=== PATIENT | male | born 1950 | race Caucasian/White ===

== ENCOUNTER 2017-01-04 09:04 | Emergency (ER) | payer MEDICARE ==
[2017-01-04] MEDS ORDERED: ALEV220T14 PO (09:35)
[2017-01-04] MEDS ORDERED: cloNIDine HCL 0.1 MG TAB PO ONE (09:45)
--- NOTE | 2017-01-04 09:45 | PD ---
HPI Chief Complaint: Back/ Neck Pain or Injury Time Seen by Provider: 09:32 Travel History International Travel<30 days: No Contact w/Intl Traveler<30days: No Traveled to known affect area: No History of Present Illness HPI 66 years old male complains of left sided neck pain and left low back pain. Patient states that the pain started about 2 weeks ago. Patient states the pain is persistent pain localized to left sided neck and also left low back area. Patient denies any pain radiation. Patient denies any fever chills. Patient denies any headache. Patient denies any coughing congestion. Patient denies abdominal pain. Patient denies any focal weakness or numbness of extremity. Patient denies recent injury. Patient denies any dysuria or frequency. Patient denies any history kidney stone. Patient states that he has history of high blood pressure in the past however not on any medication. PFSH Past Medical History Medical History: Denies Significant Hx Diminished Hearing: Yes Influenza Vaccination: No ?: Not Past Surgical History Appendectomy: Yes Other Surgery: Yes (NOSE) Social History Alcohol Use: Yes Tobacco Use: No Allergies-Medications (Allergen,Severity, Reaction): Coded Allergies: No Known Allergies (Unverified , 01/04/17) Reported Meds & Prescriptions Reported Meds & Active Scripts Active Ultram (Tramadol HCl) 50 Mg Tab 50 Mg PO Q6H PRN Lisinopril 10 Mg Tab 10 Mg PO DAILY Reported Aleve Arthritis (Naproxen Sodium) 220 Mg Tab 220 Mg PO BID Review of Systems General / Constitutional: No: Fever Eyes: No: Visual changes HENT: No: Headaches Cardiovascular: No: Chest Pain or Discomfort Respiratory: No: Shortness of Breath Gastrointestinal: No: Abdominal Pain Genitourinary: No: Dysuria Musculoskeletal: No: Pain Skin: No Rash Neurologic: No: Weakness Psychiatric: No: Depression Endocrine: No: Polydipsia Hematologic/Lymphatic: No: Easy Bruising Physical Exam Narrative GENERAL: Well-nourished, well-developed patient. SKIN: Focused skin assessment warm/dry. HEAD: Normocephalic. EYES: No scleral icterus. No injection or drainage. NECK: Supple, trachea midline. No JVD or lymphadenopathy. Mild tenderness on palpation soft tissue area left paraspinal areas cervical spine. No midline tenderness. CARDIOVASCULAR: Regular rate and rhythm without murmurs, gallops, or rubs. RESPIRATORY: Breath sounds equal bilaterally. No accessory muscle use. GASTROINTESTINAL: Abdomen soft, non-tender, nondistended. MUSCULOSKELETAL: No cyanosis, or edema. BACK: Moderate tenderness to palpation left lower lumbar area without obvious deformity. No CVA tenderness. Negative straight leg raising. Neurologic exam normal. Data Data Last Documented VS Vital Signs Date Time Temp Pulse Resp B/P (MAP) Pulse Ox O2 Delivery O2 Flow Rate FiO2 01/04/17 10:48 177/94 (121) Orders Orders Clonidine (Catapres) (01/04/17 09:45) Spine, Cervical - Ltd (Ap&Lat) (01/04/17 09:40) Ct Abd/Pel W/O Iv Contrast (01/04/17 09:40) Ct Lumb Spine W/O Contrast (01/04/17 09:40) MDM Medical Decision Making Medical Screen Exam Complete: Yes Emergency Medical Condition: Yes Interpretation(s) Last Impressions Cervical Spine X-Ray 01/04/17939 Signed Impressions: Service Date/Time: December 09:50 - CONCLUSION: No acute cervical spine abnormality is identified. There is degenerative disc disease at C6-C7. Kamron Corbett MD Abdomen/Pelvis CT 01/04/17939 Signed Impressions: Service Date/Time: December 09:56 - CONCLUSION: 1. No abnormality is identified to explain the left flank pain. There are no renal stones or signs of urinary obstruction. 2. Nonacute findings include mild atherosclerotic disease and prostatomegaly. Kamron Corbett MD Differential Diagnosis Differential diagnosis including musculoskeletal, nephrolithiasis, new-onset hypertension. Narrative Course 66 years old male with left-sided neck pain and low back pain. Blood pressures elevated. Patient has history of elevated blood pressure in the past however not a medication for it. 10:52 AM. Blood pressure came under more control. Diagnosis Primary Impression: Lumbago Qualified Codes: M54.5 - Low back pain Additional Impressions: Cervical strain Qualified Codes: S16.1XXA - Strain of muscle, fascia and tendon at neck level , initial encounter Hypertension Qualified Codes: I10 - Essential (primary) hypertension Patient Instructions: General Instructions Additional Instructions: Take medication as needed for pain. Follow-up with orthopedist and personal physician. Return if persistent problem or worse. Med/Other Pt SpecificInfo: Prescription(s) given Scripts Tramadol (Ultram) 50 Mg Tab 50 MG PO Q6H Y for PAIN, #30 TAB 0 Refills Prov: Olegario Juarez MD 01/04/17 Lisinopril (Lisinopril) 10 Mg Tab 10 MG PO DAILY, #30 TAB 0 Refills Prov: lOegario Juarez MD 01/04/17 Disposition: 01 DISCHARGE HOME Condition: Stable Olegario Juarez MD Jan 04, 2017 09:45
--- NOTE | 2017-01-04 10:06 | RADRPT ---
EXAM DATE/TIME: 01/04/2017 09:50 [facility] COMPARISON: No previous studies available for comparison. INDICATIONS : Left side cervical spine pain with no apparent injury. MEDICAL HISTORY : None. SURGICAL HISTORY : Appendectomy. Nasal surgery. ENCOUNTER: Initial ACUITY: 2 weeks PAIN SCORE: 7/10 LOCATION: Left cervical spine FINDINGS: 4 views of the cervical spine demonstrates no fracture or dislocation. Mineralization is normal. Ther e is no anterolisthesis or retrolisthesis. Decreased disc height with endplate osteophytes are presen t at C6-C7. The atlantoaxial relationship is within normal limits and there is no prevertebral soft t issue swelling. CONCLUSION: No acute cervical spine abnormality is identified. There is degenerative disc disease at C6-C7. Kamron Corbett MD on January 04, 2017 at 10:03 Board Certified Radiologist. This report was verified electronically.
--- NOTE | 2017-01-04 10:20 | RADRPT ---
EXAM DATE/TIME: 01/04/2017 09:56 [facility] COMPARISON: No previous studies available for comparison. INDICATIONS : Left flank and low back pain x 2 weeks. ORAL CONTRAST: No oral contrast ingested. RADIATION DOSE: 24.69 CTDIvol (mGy) MEDICAL HISTORY : None SURGICAL HISTORY : Appendectomy. ENCOUNTER: Initial ACUITY: 2 weeks PAIN SCALE: 9/10 LOCATION: Left flank TECHNIQUE: Volumetric scanning of the abdomen and pelvis was performed. Using automated exposure control and ad justment of the mA and/or kV according to patient size, radiation dose was kept as low as reasonably achievable to obtain optimal diagnostic quality images. DICOM format image data is available electro nically for review and comparison. FINDINGS: LOWER LUNGS: The visualized lower lungs are clear. LIVER: Homogeneous density without lesion. There is no dilation of the biliary tree. No calcified gallston es. SPLEEN: Normal size without lesion. PANCREAS: Within normal limits. KIDNEYS: Normal in size and shape. There is no mass, stone, or hydronephrosis. ADRENAL GLANDS: Within normal limits. VASCULAR: There is no aortic aneurysm. Mild atherosclerotic disease. BOWEL/MESENTERY: The stomach, small bowel, and colon demonstrate no acute abnormality. There is no free intraperitone al air or fluid. ABDOMINAL WALL: Within normal limits. RETROPERITONEUM: There is no lymphadenopathy. BLADDER: No wall thickening or mass. REPRODUCTIVE: Prostate gland is enlarged. INGUINAL: There is no lymphadenopathy or hernia. MUSCULOSKELETAL: There are degenerative changes of the lumbar spine. CONCLUSION: 1. No abnormality is identified to explain the left flank pain. There are no renal stones or signs of urinary obstruction. 2. Nonacute findings include mild atherosclerotic disease and prostatomegaly. Kamron Corbett MD on January 04, 2017 at 10:15 Board Certified Radiologist. This report was verified electronically.
[2017-01-04 10:32] VITALS: BP 204/97
[2017-01-04 10:48] VITALS: BP 177/94
--- NOTE | 2017-01-04 10:48 | RADRPT ---
EXAM DATE/TIME: 01/04/2017 09:56 [facility] COMPARISON: No previous studies available for comparison. INDICATIONS : Left flank and low back pain x 2 weeks. RADIATION DOSE: ; Reconstructed from previous dataset, no dose MEDICAL HISTORY : None SURGICAL HISTORY : Appendectomy. ENCOUNTER: Initial ACUITY: 2 weeks PAIN SCALE: 9/10 LOCATION: Left lumbar TECHNIQUE: Volumetric scanning of the lumbar spine was performed. Multiplanar reconstructions in the sagittal, coronal and oblique axial planes were performed. Using automated exposure control and adjustment of the mA and/or kV according to patient size, radiation dose was kept as low as reasonably achievable t o obtain optimal diagnostic quality images. DICOM format image data is available electronically for review and comparison. FINDINGS: VERTEBRAE: Normal vertebral body height. There is a mild rotatory scoliosis. ALIGNMENT: No evidence of subluxation. T12-L1: The thecal sac has a normal diameter. No evidence of disc bulge or protrusion. The neural foramina are patent bilaterally. L1-L2: There is a mild annular disc bulge with mild flattening of the thecal sac and the visualized protrusi on. There are mild degenerative changes involving the facet joints.. The neural foramina are patent bilaterally. L2-L3: There is a mild to moderate annular disc bulge with flattening of the anterior thecal sac and no visu alized protrusion. There is mild narrowing of the neural foramina bilaterally. There are mild degener ative changes involving facet joints.. There is mild central canal stenosis. L3-L4: There is a moderate disc bulge with flattening of anterior thecal sac and narrowing of the neural for justo. The disc margin comes in contact with the exiting nerve roots. There are mild degenerative luis fernando nges involving the facet joints. There is mild central canal stenosis. L4-L5: Moderate disc bulge with flattening of the anterior thecal sac and no visualized protrusion. There is narrowing of the neural foramina bilaterally and the disc margin comes in contact with the exiting n erve roots. There are degenerative changes involving the facet joints with mild central canal stenosi s and lateral recess stenosis. L5-S1: The thecal sac has a normal diameter. There is a mild annular disc bulge. The neural foramina are pat ent bilaterally. There are degenerative changes involving facet joints bilaterally. The visualized po rtions of the sacroiliac joints are intact with bony fusion along the right anterior joint. CONCLUSION: 1. Mild central canal stenosis at the L2-3 through L4-5 level secondary to disc bulges and degenerati ve changes involving the facet joints. There is lateral recess stenosis at the L4-5 level as well. 2. There is narrowing of the neural foramina bilaterally at the L2-3 through L5-S1 levels. The exitin g nerve roots meet the disc margins. 3. Degenerative changes involving the lower facet joints. Ian Myers MD on January 04, 2017 at 10:41 Board Certified Radiologist. This report was verified electronically.
[2017-01-04] MEDS ORDERED: LISI10TA3 PO (10:52)
[2017-01-04] MEDS ORDERED: ULTR50TA5 PO (10:52)
[2017-01-04] MEDS ORDERED: KETOROLAC TROMETHAMINE 60 MG/2 ML (IM) VIAL IM ONE (11:00)
[2017-01-04 11:15] VITALS: BP 162/92
== END 2017-01-04 11:16 | disposition home or self-care (01) ==
LOC: PHED 09:04
DX: M54.5 Low back pain (principal); S16.1XXA Strain of muscle, fascia and tendon at neck level, initial encounter; I10 Essential (primary) hypertension; X58.XXXA Exposure to other specified factors, initial encounter
CPT/HCPCS: 72040; 72131; 74176; 96372; 99285; J1885